=== PATIENT | male | born 1990 | race African-American/Black ===

== ENCOUNTER 2020-11-19 18:17 | Inpatient (IN) ==
[2020-11-19] MEDS ORDERED: ceFAZolin 1,000 MG VIAL ONE (18:22)
[2020-11-19] MEDS ORDERED: ONDANSETRON 4 MG/2 ML VIAL ONE (18:22)
[2020-11-19] MEDS ORDERED: MORPHINE 4 MG/1 ML VIAL ONE (18:22)
[2020-11-19] MEDS ORDERED: DIPH/TET/ACEL PERT BOOSTER VACCINE 0.5 ML VIAL IM ONE (18:22)
[2020-11-19] MEDS ORDERED: LACTATED RINGERS 1,000 ML IV STA (18:25)
[2020-11-19] MEDS ORDERED: MORPHINE 4 MG/1 ML VIAL IV STA ×2 (18:25→18:56)
[2020-11-19] MEDS ORDERED: ONDANSETRON 4 MG/2 ML VIAL IV STA ×2 (18:26→19:33)
[2020-11-19 18:37] LABS: Basophils # 0.1 10*3/uL (0.0-0.2); Basophils % 0.5 % (0.0-0.8); Eosinophils # 0.1 10*3/uL (0.0-0.87); Eosinophils % 0.7 % (0.00-10.9); Hematocrit 37.7 VOL% (42.0-52.0); Hemoglobin 12.3 GM/DL (14.0-18.0); Immature Granulocytes % 0.6 %; Immature Granulocytes Absolute 0.07 #; Lymphocytes # 3.5 10*3/uL (1.4-4.0); Lymphocytes % 31.6 % (21.2-54.2); Mean Corpuscular HGB Conc 32.6 GM/DL (32-36); Mean Corpuscular Volume 86.3 FL (87-102); Mean Platelet Volume 9.6 FL (9.6-12.0); Neutrophils % 58.6 % (38.7-73.9); Platelet Count 274 T/CUMM (130-400); Red Blood Count 4.37 MC/CUMM (3.8-5.5); Red Cell Distribution Width 15.9 % (9.3-17.3)
[2020-11-19 18:50] LABS: INR 3.5; Partial Thromboplastin Time 36.2 SECS (23.9-33.8)
[2020-11-19 18:59] LABS: PT Patient Result 35.6 SECS (9.8-11.9)
[2020-11-19 19:03] LABS: Alanine Aminotransferase 22 U/L (16-61); Albumin 3.4 G/DL (3.4-5.0); Alkaline Phosphatase 63 U/L (45-117); Amylase 55 U/L (25-115); Aspartate Amino Transferase 19 U/L (0-37); Blood Urea Nitrogen 12 MG/DL (7-18); Calcium 8.1 MG/DL (8.5-10.1); Carbon Dioxide 23 MMOL/L (21-32); Estimated Glom Filtration Rate 78 ML/MIN; Glucose 122 MG/DL (74-106); Osmolality,Calculated 288.7 MOS/KG (273-304); Sodium 145 MMOL/L (136-145); Total Protein 6.3 G/DL (6.4-8.2)
[2020-11-19 19:12] LABS: Bacteria,Urine Occasional /HPF (Few); Bilirubin,Urine Negative (Negative); Blood, Urine Negative (Negative); Glucose,Urine (UA) Negative (Negative); Hyaline Casts,Urine 17 /LPF (0-3); Ketones,Urine 5 mg/dL (Negative); Mucus,Urine Many /LPF (Occasional); Nitrite,Urine Negative (Negative); Protein,Urine 30 MG/DL; RBC,Urine 1 /HPF (0-4); Urine Appearance CLEAR (Clear); Urine Color Yellow (Yellow); Urine Specific Gravity 1.032 (1.001-1.035); WBC,Urine 3 /HPF (0-6)
[2020-11-19 19:19] LABS: Barbiturates Screen,Urine Negative (Negative); Benzodiazepines Screen,Urine Negative (Negative); Cannabinoid Screen,Urine Negative (Negative); Opiate Screen,Urine Positive (Negative); Phencyclidine Screen,Urine Negative (Negative)
[2020-11-19] MEDS ORDERED: POTASSIUM CHLORIDE RIDER 20 MEQ in PREMIX 1 EACH IV STA (19:23)
[2020-11-19] MEDS ORDERED: POTASSIUM CHLORIDE 20 MEQ TABLET PO STA (19:23)
[2020-11-19] MEDS ORDERED: HYDROmorphone 2 MG/1 ML VIAL ONE (19:52)
[2020-11-19] MEDS ORDERED: HYDROmorphone 2 MG/1 ML VIAL IV STA (19:53)
[2020-11-19 20:06] LABS: ABG HCO3 24.5 MMOL/L (20-26); ABG Oxygen Saturation 96.9 % (95-100); ABG PCO2 43.9 MM HG (35-48); ABG PH 7.364 (7.35-7.45); ABG TCO2 25.8 MMOL/L (23-27)
[2020-11-19] MEDS ORDERED: ONDANSETRON 4 MG/2 ML VIAL IV PRN (21:42)
[2020-11-19] MEDS ORDERED: SODIUM CHLORIDE 0.9% 1,000 ML IV SCH (21:42)
[2020-11-19] MEDS ORDERED: ALBUTEROL/IPRATROPIUM 3 ML NEB RESP TX PRN (21:42)
[2020-11-19] MEDS ORDERED: ACETAMINOPHEN 325 MG TABLET PO PRN (21:42)
[2020-11-19] MEDS: MORPHINE 4 MG/1 ML VIAL IV PRN (21:52)
[2020-11-19] MEDS: LACTATED RINGERS 1,000 ML IV SCH (22:01)
[2020-11-19] MEDS: PIPERACILLIN/TAZOBACTAM 3,375 MG in SODIUM CHLORIDE 0.9% 100 ML IV SCH (22:10)
[2020-11-19] MEDS: HYDROmorphone 2 MG/1 ML VIAL IV PRN (23:18)
[2020-11-20] MEDS: HYDROmorphone 2 MG/1 ML VIAL IV PRN ×3 (03:24→18:00)
[2020-11-20 05:46] LABS: Basophils # 0.1 10*3/uL (0.0-0.2); Basophils % 0.3 % (0.0-0.8); Hematocrit 37.8 VOL% (42.0-52.0); Hemoglobin 12.4 GM/DL (14.0-18.0); Immature Granulocytes % 0.8 %; Immature Granulocytes Absolute 0.19 #; Lymphocytes % 4.2 % (21.2-54.2); Mean Corpuscular HGB Conc 32.8 GM/DL (32-36); Mean Corpuscular Volume 86.3 FL (87-102); Monocytes % 5.4 % (1.7-12.7); Neutrophils % 89.3 % (38.7-73.9); Platelet Count 300 T/CUMM (130-400); Red Blood Count 4.38 MC/CUMM (3.8-5.5); Red Cell Distribution Width 15.9 % (9.3-17.3); White Blood Count 23.8 T/CUMM (4-12)
[2020-11-20 06:08] LABS: Albumin 3.6 G/DL (3.4-5.0); Bilirubin,Total 1.8 MG/DL (0.2-1.0); Calcium 8.5 MG/DL (8.5-10.1); Osmolality,Calculated 279.4 MOS/KG (273-304); Potassium 4.3 MMOL/L (3.5-5.1); Total Protein 6.7 G/DL (6.4-8.2)
[2020-11-20 06:09] LABS: Band Neutrophils 2 % (0-10); Hypochromasia 1+; Lymphocytes 7 % (20-55); Microcytosis 1+; Segmented Neutrophils 84 % (50-85); Total Cells Counted 100
[2020-11-20 06:10] LABS: Platelet Estimate Normal; Target Cells Slight
[2020-11-20] MEDS: LACTATED RINGERS 1,000 ML IV SCH ×2 (06:17→11:02)
[2020-11-20] MEDS: PIPERACILLIN/TAZOBACTAM 3,375 MG in SODIUM CHLORIDE 0.9% 100 ML IV SCH ×3 (06:17→20:24)
[2020-11-20] MEDS: MORPHINE 4 MG/1 ML VIAL IV PRN (07:55)
[2020-11-20] MEDS: PANTOPRAZOLE 40 MG TABLET PO SCH (09:36)
[2020-11-20] MEDS: LOSARTAN 50 MG TABLET PO SCH (11:01)
[2020-11-20] MEDS: KETOROLAC 15 MG/1 ML VIAL IV SCH ×2 (11:01→20:24)
[2020-11-20] MEDS: ALBUTEROL/IPRATROPIUM 3 ML NEB RESP TX SCH ×2 (13:24→19:28)
[2020-11-21] MEDS: HYDROmorphone 2 MG/1 ML VIAL IV PRN ×4 (00:45→19:37)
[2020-11-21] MEDS: ALBUTEROL/IPRATROPIUM 3 ML NEB RESP TX SCH ×4 (02:00→21:20)
[2020-11-21] MEDS: LACTATED RINGERS 1,000 ML IV SCH (02:21)
[2020-11-21] MEDS: PIPERACILLIN/TAZOBACTAM 3,375 MG in SODIUM CHLORIDE 0.9% 100 ML IV SCH ×2 (05:30→14:54)
[2020-11-21] MEDS: KETOROLAC 15 MG/1 ML VIAL IV SCH ×5 (05:30→21:43)
[2020-11-21] MEDS: PANTOPRAZOLE 40 MG TABLET PO SCH (08:45)
[2020-11-21] MEDS: LOSARTAN 50 MG TABLET PO SCH (08:45)
[2020-11-22] MEDS: HYDROmorphone 2 MG/1 ML VIAL IV PRN (00:24)
[2020-11-22] MEDS: PIPERACILLIN/TAZOBACTAM 3,375 MG in SODIUM CHLORIDE 0.9% 100 ML IV SCH ×3 (00:25→15:27)
[2020-11-22] MEDS: ALBUTEROL/IPRATROPIUM 3 ML NEB RESP TX SCH ×3 (02:20→13:28)
[2020-11-22] MEDS: KETOROLAC 15 MG/1 ML VIAL IV SCH ×3 (04:20→15:27)
[2020-11-22 06:27] LABS: Basophils # 0.1 10*3/uL (0.0-0.2); Basophils % 0.6 % (0.0-0.8); Eosinophils # 0.3 10*3/uL (0.0-0.87); Eosinophils % 3.3 % (0.00-10.9); Hematocrit 31.7 VOL% (42.0-52.0); Immature Granulocytes % 0.3 %; Immature Granulocytes Absolute 0.03 #; Lymphocytes # 2.4 10*3/uL (1.4-4.0); Lymphocytes % 23.2 % (21.2-54.2); Mean Corpuscular HGB Conc 32.2 GM/DL (32-36); Mean Corpuscular Volume 86.6 FL (87-102); Mean Platelet Volume 10.5 FL (9.6-12.0); Monocytes % 9.1 % (1.7-12.7); Neutrophils % 63.5 % (38.7-73.9); Platelet Count 268 T/CUMM (130-400); Red Blood Count 3.66 MC/CUMM (3.8-5.5); Red Cell Distribution Width 15.1 % (9.3-17.3)
[2020-11-22 06:32] LABS: White Blood Count 10.3 T/CUMM (4-12)
[2020-11-22 06:33] LABS: Hemoglobin 10.2 GM/DL (14.0-18.0)
[2020-11-22 06:41] LABS: Albumin 2.8 G/DL (3.4-5.0); Calcium 8.7 MG/DL (8.5-10.1); Osmolality,Calculated 275.4 MOS/KG (273-304); Potassium 3.7 MMOL/L (3.5-5.1); Total Protein 5.8 G/DL (6.4-8.2)
[2020-11-22] MEDS: PANTOPRAZOLE 40 MG TABLET PO SCH (08:11)
[2020-11-22] MEDS: LOSARTAN 50 MG TABLET PO SCH (08:11)
[2020-11-22 13:20] VITALS: BP 148/90
== END 2020-11-22 15:46 | disposition home or self-care (01) | DRG 199 ==
LOC: EDBD → EDUNIT# → N.ED 18:17 → N.EDINP 20:35 → N.CC 21:21 → N.4E 11-21 14:45
PROVIDERS: ADMIT Surgery; ATTEND Surgery